=== PATIENT | male | born 1990 | race Caucasian/White ===

== ENCOUNTER 2016-11-02 18:13 | Emergency (ER) | payer MEDICAID ==
[~2016-11-02] VITALS: Ht 172.7 cm; Wt 86.2 kg
[2016-11-02 18:38] VITALS: BP 126/71
== END 2016-11-02 19:35 | disposition home or self-care (01) ==
LOC: ER 18:19
DX: L01.00 Impetigo, unspecified (principal)
CPT/HCPCS: 99283; A4606; Z7610